=== PATIENT | female | born 1970 | race Two or more races ===

== ENCOUNTER 2017-04-27 08:14 | Day surgery (SDC) | payer BC ==
[~2017-04-27] VITALS: Ht 158.8 cm; Wt 69.9 kg
[2017-04-27] VITALS (8 sets, daily range): BP systolic 110–126; BP diastolic 73–86
--- NOTE | 2017-04-27 06:54 | Anethesia Preoperative Eval ---
Anesthesia Pre-op PMH/ROS General Date of Evaluation: Apr 27, 2017 Time of Evaluation: 06:53 Anesthesiologist: anson ASA Score: ASA 3 Mallampati Score Class I : Soft palate, uvula, fauces, pillars visible Class II: Soft palate, uvula, fauces visible Class III: Soft palate, base of uvula visible Class IV: Only hard plate visible Mallampati Classification: Class II Surgeon: moe Diagnosis: hx/o colon cancer, gerd Surgical Procedure: egd/colonocopy Anesthesia History: none Social History: smoking - nonsmoker Family History: no anesthesia problems Allergies: Coded Allergies: No Known Allergies (Unverified , 04/27/17) Medications: see eMAR Past Medical History Gastrointestinal/Genitourinary: Reports: other - hydronephrosis Anesthesia Pre-op Phys. Exam Physician Exam Last Vital Signs Date Time Temp Pulse Resp B/P (MAP) Pulse Ox O2 Delivery O2 Flow Rate FiO2 04/27/17 09:02 97.9 72 14 110/73 Room Air Constitutional: NAD Neurologic: CN 2-12 intact Cardiovascular: RRR Respiratory: CTA Gastrointestinal: S/NT/ND Airway Exam Mallampati Score: Class II MO: full Neck: supple TMD: 2fb ROM: full Teeth: intact Anesthesia Pre-op A/P Labs Labs Test 04/27/17 09:15 Urine HCG, Qualitative Negative Risk Assessment & Plan Assessment: asa3 Plan: mac Status Change Before Surgery: No Pre-Antibiotics Drug: MARIAN Weiss Apr 27, 2017 06:54
[2017-04-27] MEDS ORDERED: NKM (09:39)
[2017-04-27] MEDS ORDERED: Lidocaine 1% MPF 10mg/ml 5ml ONE (10:00)
[2017-04-27] MEDS ORDERED: Propofol 200mg/20ml IV ONE (10:00)
--- NOTE | 2017-04-27 10:06 | Pre-Procedure Note/Attestation ---
Pre-Procedure Note/Attestation Complete Prior to Procedure Planned Procedure: not applicable Procedure Narrative: esophagogastroduodenoscopy and colonoscopy Indications for Procedure Pre-Operative Diagnosis: extensive family history of colon cancer GERD Attestation I attest that I discussed the nature of the procedure; its benefits; risks and complications; and alternatives (and the risks and benefits of such alternatives ), prior to the procedure, with the patient (or the patient's legal sales promotion representative). I attest that, if there was a reasonable possibility of needing a blood transfusion, the patient (or the patient's legal sales promotion representative) was given the [facility] standardized written summary, pursuant to the [place] Blood Safety Act ([place] Health and Safety Code # 1645, as amended). I attest that I re-evaluated the patient just prior to the surgery and that there has been no change in the patient's H&P, except as documented below: TOM MAE Apr 27, 2017 10:06
--- NOTE | 2017-04-27 10:07 | Short Stay Surgery H&P ---
History of Present Illness History of Present Illness Chief Complaint family history of colon cancer GERD HPI Stephanie Durbin is a 47 year old female who was admitted on for Hx Colon Cancer /Gerd Patient History Allergies: Coded Allergies: No Known Allergies (Unverified , 04/27/17) PAST MEDICAL HISTORY: Past Surgeries: Social History: Medication History Scheduled No Known Medications* (NKM - No Known Medications*), 0 ., (Reported) Review of Systems Cardiovascular: Reports: no symptoms Respiratory: Reports: no symptoms Skeletal: Reports: no symptoms Gastrointestinal: Reports: gastro esophageal reflux disease Genitourinary: Reports: no symptoms Neurologic: Reports: no symptoms Endocrine: Reports: no symptoms Hematologic: Reports: no symptoms Physical Exam Vital Signs Last Vital Signs Date Time Temp Pulse Resp B/P (MAP) Pulse Ox O2 Delivery O2 Flow Rate FiO2 04/27/17 09:02 97.9 72 14 110/73 Room Air Labs Laboratory Tests Test 04/27/17 09:15 Urine HCG, Qualitative Negative Skin: normal HENT: normal Heart: normal Lungs: normal Abdomen: normal Extremities: normal Plan Plan of Care esophagogastroduodenoscopy and colonoscopy Final Diagnosis: Attestation Are the patient's medical conditions optimized for surgery? Attestation Response: yes TOM MAE Apr 27, 2017 10:07
[2017-04-27] MEDS ORDERED: fentaNYL 100 mcg/2 mL IV PRN (10:45)
[2017-04-27] MEDS ORDERED: DiphenhydrAMINE 50mg/ml Inj IVP PRN (10:45)
[2017-04-27] MEDS ORDERED: Midazolam 2mg/2ml Inj IVP PRN (10:45)
[2017-04-27] MEDS ORDERED: Atropine Inj 1mg/10ml Syr IV PRN (10:45)
--- NOTE | 2017-04-27 10:46 | Endoscopy Procedure Note ---
Endoscopy Procedure Note General Indication for Procedure: fh of colon cancer, GERD Procedures Performed: EGD, colonoscopy Operative Findings/Diagnosis: gastritis, hemorrhoids Specimen: yes Pt Tolerated Procedure Well: Yes Estimated Blood Loss: none Anesthesia Anesthesiologist: giles Anesthesia: MAC Inserted Devices Implant(s) used?: No Quality Quality of Bowel Preparation: Excellent Was there any complications?: Yes GI Core Measures 50 yrs or older w/o bx or poly: Yes 10yrs. F/U not recommended: Yes If not recommended, why?: Above average risk 10 yrs. F/U needed: Yes 18 years or older w/prev. colo: No TOM MAE Apr 27, 2017 10:46
--- NOTE | 2017-04-27 16:15 | Procedure Note ---
DATE OF PROCEDURE: 04/27/2017 SURGEON: Cecilio Corbin M.D. PROCEDURE: Upper endoscopy with biopsy and colonoscopy. ANESTHESIA: Per Dr. Ball. REFERRING PHYSICIAN: Latasha Grijalva M.D. INSTRUMENT: Olympus adult flexible endoscope and colonoscope. INDICATION: 1. Chronic acid reflux disease. 2. Extensive family history of colon cancer. The procedure, risks, benefits, and possible consequences, including hemorrhage, aspiration, perforation and infection, and alternative treatments, were explained to the patient/legal guardian by Dr. Cecilio Corbin and the patient/legal guardian understood and accepted these risks. DESCRIPTION OF PROCEDURE: After informed consent was obtained and the patient was adequately sedated, first Olympus upper endoscope was advanced from mouth into the second portion of the duodenum and retroflexion was performed in the stomach. GE junction was found to be about 35 cm from the incisors. There was some irregularity at the Z-line without any esophagitis or ulceration. In the stomach, there was diffuse gastritis. Random biopsy from antrum and body was obtained to rule out H. pylori infection. At this time, the upper endoscope was retrieved and the patient was turned over for colonoscopy. First, a rectal exam was performed, which was positive for internal hemorrhoids. Then, the scope was advanced from the rectum into the terminal ileum. Quality of prep was good. There was no obvious finding in the colon. No polyps. No mass. No diverticulosis. Retroflexion of rectum showed evidence of internal hemorrhoids. SUMMARY OF FINDINGS: 1. Gastritis, status post biopsy. 2. Irregular Z-line. 3. Internal hemorrhoids, otherwise, normal colonoscopic examination. RECOMMENDATIONS: Follow up biopsy results and treat accordingly. I want to thank, Dr. Latasha Grijalva, for this kind referral. Cecilio Corbin M.D. DR: DEZ JOB#: [id number] CC: Latasha Grijalva M.D.; Fax#: [phone]
--- NOTE | 2017-05-01 08:37 | Cardiology Report ---
APPROVED REPORT EKG Measurement Heart [id number] Normal sinus rhythm Incomplete right bundle branch block Borderline ECG
== END 2017-04-27 11:55 | disposition home or self-care (01) ==
LOC: GAS 08:14
DX: K21.9 Gastro-esophageal reflux disease without esophagitis (principal); Z80.0 Family history of malignant neoplasm of digestive organs; K64.8 Other hemorrhoids; K29.50 Unspecified chronic gastritis without bleeding
CPT/HCPCS: 43239; 45378; 81025; 93005; J2704; 94003; 94150